=== PATIENT | male | born 1990 | race Caucasian/White ===

== ENCOUNTER 2024-08-18 15:49 | Emergency (ER) | payer SELFPAY ==
[2024-08-18] VITALS (9 sets, daily range): BP systolic 110–130; BP diastolic 61–83; PULSE 69–83; RESP 19; TEMP 36.3; O2SAT 96–99; BMI 34.2
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
[2024-08-18] MEDS: ACETAMINOPHEN 325 MG TABLET 975 MG PO (17:24)
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
[2024-08-18] MEDS: IBUPROFEN 400 MG TABLET 800 MG PO (22:34)
[2024-08-18] MEDS: HYDROCODONE/ACET 5/325 TABLET 1 TAB PO (22:34)
[2024-08-19] MEDS: HYDROCODONE/ACET 5/325 PREPACK 1 BOTTLE MISC (00:09)
== END 2024-08-19 00:15 | disposition home or self-care (01) ==
PROVIDERS: Emergency Provider Emergency Medicine
DX: S52.131A Displaced fracture of neck of right radius, initial encounter for closed fracture (principal); S62.617A Displaced fracture of proximal phalanx of left little finger, initial encounter for closed fracture; S09.90XA Unspecified injury of head, initial encounter; R07.9 Chest pain, unspecified; V19.9XXA Pedal cyclist (driver) (passenger) injured in unspecified traffic accident, initial encounter
CPT/HCPCS: 70450; 70486; 71046; 72125; 73080; 73130; 99284

== ENCOUNTER 2024-08-20 07:35 | Emergency (ER) | payer SELFPAY ==
[2024-08-20] VITALS (7 sets, daily range): BP systolic 109–130; BP diastolic 56–65; PULSE 67–93; RESP 18; TEMP 36.7; O2SAT 96–98
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
--- NOTE | 2024-08-20 08:07 | DI.RAD.S_ITS ---
PROCEDURE: XR HUMERUS RT 2V INDICATIONS: trauma TECHNIQUE: 2 views of the humerus were acquired. COMPARISON: [facility], CR, XR CLAVICLE RT, 08/20/2024, 8:09. FINDINGS: Bones: No fractures or dislocations. No suspicious bony lesions. Soft tissues: No suspicious soft tissue calcifications. Calcific tendinitis. IMPRESSION: No visualized acute fracture or dislocation. However, if clinical concern and/or pain persist, short interval imaging followup in 7-10 days is recommended, as occult injury cannot be definitively excluded. Dictated by: Magdalena Willis M.D. on 08/20/2024 at 8:46 Approved by: Magdalena Willis M.D. on 08/20/2024 at 8:47
--- NOTE | 2024-08-20 08:07 | DI.RAD.S_ITS ---
PROCEDURE: XR CLAVICLE RT INDICATIONS: trauma TECHNIQUE: 2 views of the clavicle were acquired. COMPARISON: [facility], CR, XR HUMERUS RT 2V, 08/20/2024, 8:09. FINDINGS: Bones: No fractures or dislocations. No suspicious bony lesions. Soft tissues: No suspicious soft tissue calcifications. Right calcific tendonitis. IMPRESSION: No visualized acute fracture or dislocation. However, if clinical concern and/or pain persist, short interval imaging followup in 7-10 days is recommended, as occult injury cannot be definitively excluded. Dictated by: Magdalena Willis M.D. on 08/20/2024 at 8:45 Approved by: Magdalena Willis M.D. on 08/20/2024 at 8:46
== END 2024-08-20 09:54 | disposition home or self-care (01) ==
PROVIDERS: Emergency Provider Emergency Medicine
DX: S52.501D Unspecified fracture of the lower end of right radius, subsequent encounter for closed fracture with routine healing (principal); S62.607D Fracture of unspecified phalanx of left little finger, subsequent encounter for fracture with routine healing
CPT/HCPCS: 73000; 73060; 99283

== ENCOUNTER → 2024-10-08 15:26 | Outpatient (CLI) | payer OTHER, SELFPAY ==
--- NOTE | 2024-10-08 15:27 | DI.RAD.S_ITS ---
PROCEDURE: XR ELBOW RT MIN 3V INDICATIONS: follow-up/repeat XR from fracture TECHNIQUE: 3 views of the elbow were acquired. COMPARISON: [facility], CR, XR ELBOW RT MIN 3V, 08/18/2024, 16:19. FINDINGS: Bones: No previously and I identified fractures or dislocations. No suspicious bony lesions. There has been healing of the slightly depressed radial head/neck junction fracture, with a small degree of worsening in slight valgus malalignment. Soft tissues: No elbow joint effusion. No suspicious soft tissue calcifications. IMPRESSION: Continued healing of a radial neck fracture with slight worsening of valgus malalignment at the fracture plane. Dictated by: Matthew Fishman M.D. on 10/09/2024 at 7:23 Approved by: Matthew Fishman M.D. on 10/09/2024 at 7:26
--- NOTE | 2024-10-08 15:27 | DI.RAD.S_ITS ---
PROCEDURE: XR HAND LT MIN 3V INDICATIONS: left 5th intra-articular proximal phalanx fracture TECHNIQUE: 3 views of the hand(s) acquired. COMPARISON: [facility], [place], XR HAND LT MIN 3V, 08/18/2024, 16:19. FINDINGS: Bones: No previously unidentified fractures or dislocations. Carpal bones are normally aligned. No suspicious bony lesions. Soft tissues: No suspicious soft tissue calcifications. IMPRESSION: No acute bony abnormality. Healed fracture at the base of the 5th proximal phalanx. Normal alignment. Dictated by: Matthew Fishman M.D. on 10/09/2024 at 7:27 Approved by: Matthew Fishman M.D. on 10/09/2024 at 7:28
== END ==
PROVIDERS: PCP Family Medicine; Referring Provider Family Medicine; Visit Provider Family Medicine
DX: S52.131D Displaced fracture of neck of right radius, subsequent encounter for closed fracture with routine healing (principal); S62.617D Displaced fracture of proximal phalanx of left little finger, subsequent encounter for fracture with routine healing; X58.XXXD Exposure to other specified factors, subsequent encounter
CPT/HCPCS: 73080; 73120

== ENCOUNTER → 2024-10-12 12:04 | Outpatient (CLI) | payer OTHER, SELFPAY ==
[2024-10-12 15:13] LABS: Rubella Antibody IgG 4.2 IU/mL (>15)
[2024-10-13 09:08] LABS: Mumps Virus IgG Antibody <9.0 AU/mL (Immune >10.9)
[2024-10-14 02:36] LABS: Hepatitis B Core Antibody Negative (Negative)
[2024-10-14 06:07] LABS: Rubeola Measles IgG < 13.5 AU/mL (Immune >16.4); Varicella IgG Antibody Non Reactive (Non Reactive)
== END ==
PROVIDERS: PCP Family Medicine; Referring Provider Family Medicine; Visit Provider Family Medicine
DX: Z78.9 Other specified health status (principal)
CPT/HCPCS: 36415; 86704; 86735; 86762; 86765; 86787